=== PATIENT | male | born 1995 | race Caucasian/White ===

== ENCOUNTER 2019-05-09 21:57 | Emergency (ER) | payer OTHER ==
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
[2019-05-10 00:44] VITALS: BP 120/83
== END 2019-05-10 00:43 | disposition home or self-care (01) ==
LOC: ED 21:57
DX: S16.1XXA Strain of muscle, fascia and tendon at neck level, initial encounter (principal); V43.62XA Car passenger injured in collision with other type car in traffic accident, initial encounter; Y92.410 Unspecified street and highway as the place of occurrence of the external cause
CPT/HCPCS: 99282; 99284